=== PATIENT | male | born 1955 | race Caucasian/White ===

== ENCOUNTER → 2022-09-12 | Outpatient (REF) | payer MEDICARE, MEDICAID ==
[~2022-09-12] MED LIST: ATOR1TAB19 PO; JANU100T PO; METF10004 PO; OMEP-173 PO; TAMS1CAP17 PO; VICT18IN2
[2022-09-12 13:28] LABS: APPEARANCE, URINE HAZY (CLEAR); BACTERIA, URINE AUTO 1+ (NEGATIVE); BILIRUBIN, URINE AUTO NEGATIVE (NEGATIVE); BLOOD, URINE BLOOD 2+ (NEGATIVE); COLOR, URINE YELLOW (YELLOW); GLUCOSE, URINE (UA) AUTO NEGATIVE (NEGATIVE); KETONE, URINE AUTO NEGATIVE (NEGATIVE); LEUKOCYTE ESTERASE, URINE AUTO 3+ (NEGATIVE); MUCUS, URINE SMALL (NEGATIVE); NITRITE, URINE AUTO NEGATIVE (NEGATIVE); PROTEIN, URINE AUTO 1+ mg/dL (NEGATIVE); RBC, URINE AUTO 30 /HPF (0-3); SPECIFIC GRAVITY URINE AUTO 1.029 (1.002-1.035); SQUAMOUS EPITHELIAL CELL UR AU 0 /HPF (0-6); UROBILINOGEN, URINE AUTO 0.2 mg/dL (0.0-2.0); WBC, URINE AUTO 109 /HPF (0-3)
== END ==
LOC: M SMT 13:06
PROVIDERS: ATTEND Urology
DX: R33.9 Retention of urine, unspecified (principal)

== ENCOUNTER 2022-09-28 10:12 | Day surgery (SDC) | payer MEDICARE, MEDICAID ==
[~2022-09-28] VITALS: Ht 177.8 cm; Wt 89.8 kg
[~2022-09-28 10:12] MED LIST changes: +LIDOCAINE 1% SDV 30ML VIAL As Ordered ONE; +ceFAZolin SOD 2 GM in IV 1 EA IV ONE
[2022-09-28] MEDS ORDERED: INSULIN LISPRO (NovoLOG) PER UNIT SC PRN (10:55)
[2022-09-28] MEDS ORDERED: LR 1,000 ML IV SCH ×2 (10:55→13:20)
[2022-09-28] MEDS ORDERED: METO1TAB33 PO (11:10)
[2022-09-28] MEDS ORDERED: LISI5TAB11 PO (11:10)
[2022-09-28] MEDS ORDERED: METOPROLOL SUCC (TopROL XL) 100MG *XL* TAB PO ONE (11:55)
[2022-09-28] MEDS ORDERED: ceFAZolin SOD 2 GM in IV 1 EA IV ONE (12:00)
[2022-09-28 12:12] VITALS: BP 178/88
[2022-09-28] MEDS ORDERED: METOPROLOL SUCC *XL* 25MG TAB (TopROL *XL*) PO ONE (12:15)
[2022-09-28] MEDS ORDERED: ONDANSETRON 4MG 2ML VIAL As Ordered ONE (12:44)
[2022-09-28] MEDS ORDERED: fentaNYL 250 MCG/5 ML INJECTION As Ordered ONE (12:44)
[2022-09-28] MEDS ORDERED: MIDAZOLAM INJ 2MG/2ML VIAL As Ordered ONE (12:44)
[2022-09-28] MEDS ORDERED: LIDOCAINE 2% 100MG/5ML SDV (FOR ANES.) As Ordered ONE (12:44)
[2022-09-28] MEDS ORDERED: propofoL 200 MG/20 ML VIAL As Ordered ONE (12:44)
[2022-09-28] MEDS ORDERED: ACETAMINOPHEN 1000MG 100ML IV BAG As Ordered ONE (12:48)
[2022-09-28] MEDS ORDERED: HYDR-3713 PO (13:18)
[2022-09-28] MEDS ORDERED: LEVO1TAB39 PO (13:18)
[2022-09-28] MEDS ORDERED: ONDANSETRON 4MG 2ML VIAL IV PRN (13:20)
[2022-09-28] MEDS ORDERED: oxyCODONE 5MG TAB PO PRN (13:20)
[2022-09-28] MEDS ORDERED: HYDROMORPHONE HCL 0.5 MG/ 0.5 ML SYRINGE IV PRN (13:20)
[2022-09-28] MEDS ORDERED: fentaNYL 100 MCG/2 ML INJECTION IV PRN (13:20)
[2022-09-28 14:35] VITALS: BP 146/70; TEMP 97.4; O2SAT 98
== END 2022-09-28 14:40 | disposition home or self-care (01) ==
LOC: M SDC 10:12
PROVIDERS: ATTEND Urology
DX: R33.9 Retention of urine, unspecified (principal); E11.9 Type 2 diabetes mellitus without complications; K21.9 Gastro-esophageal reflux disease without esophagitis; Z86.73 Personal history of transient ischemic attack (TIA), and cerebral infarction without residual deficits; Z79.899 Other long term (current) drug therapy; Z79.84 Long term (current) use of oral hypoglycemic drugs
CPT/HCPCS: 51040; J0131; J0690; J1100; J2250; J2405; J3010

== ENCOUNTER → 2023-11-22 | Outpatient (CLI) | payer MEDICAID, MEDICARE ==
[~2023-11-22] MED LIST changes: +HYDR-3713 PO; +LEVO1TAB39 PO; +LIDOCAINE 1% MDV 20ML VIAL As Ordered ONE; -LIDOCAINE 1% SDV 30ML VIAL As Ordered ONE; +LISI5TAB11 PO; +METO1TAB33 PO; -ceFAZolin SOD 2 GM in IV 1 EA IV ONE
[2023-11-22 10:02] VITALS: BP 170/80; TEMP 98.8; O2SAT 99
== END ==
LOC: M IRPRO 09:53
PROVIDERS: ATTEND Otolaryngology
DX: D11.0 Benign neoplasm of parotid gland (principal)

== ENCOUNTER → 2024-01-02 | Outpatient (CLI) | payer MEDICARE, MEDICAID ==
[~2024-01-02] MED LIST changes: -LIDOCAINE 1% MDV 20ML VIAL As Ordered ONE
== END ==
LOC: M PLARAD 08:23
PROVIDERS: ATTEND Otolaryngology
DX: C07 Malignant neoplasm of parotid gland (principal)
CPT/HCPCS: 78815; A9552

== ENCOUNTER → 2024-02-19 | Outpatient (CLI) | payer MEDICAID, MEDICARE ==
[~2024-02-19] MED LIST changes: +AMLO1TAB25 PO; +FLOM0.4C39 PO; +VITA200012 PO
== END ==
LOC: M ONCR 08:58
PROVIDERS: ATTEND General Practice
DX: C07 Malignant neoplasm of parotid gland (principal); Z87.891 Personal history of nicotine dependence; Z98.890 Other specified postprocedural states; Z86.73 Personal history of transient ischemic attack (TIA), and cerebral infarction without residual deficits; Z79.84 Long term (current) use of oral hypoglycemic drugs; Z79.899 Other long term (current) drug therapy; Z79.85 Long-term (current) use of injectable non-insulin antidiabetic drugs; Z90.49 Acquired absence of other specified parts of digestive tract

== ENCOUNTER → 2024-03-15 | Outpatient (RCR) | payer MEDICARE, MEDICAID | LOC: M ONCR 02-29 07:41 | PROVIDERS: ATTEND General Practice | DX: Z51.0 Encounter for antineoplastic radiation therapy (principal); C07 Malignant neoplasm of parotid gland ==

== ENCOUNTER → 2024-03-19 | Outpatient (CLI) | payer MEDICAID, MEDICARE ==
[~2024-03-19] MED LIST changes: +LABETALOL 100MG/20ML VIAL As Ordered ONE; +LIDOCAINE 1% MDV 20ML VIAL As Ordered ONE; +MIDAZOLAM INJ 2MG/2ML VIAL As Ordered ONE; +NS (Normal Saline) 0.9% 1,000 ML IV SCH; +ceFAZolin 2 GM/D5W 50 ML IV BAG As Ordered ONE; +fentaNYL 100 MCG/2 ML INJECTION As Ordered ONE
[2024-03-19 09:55] VITALS: TEMP 98.4
[2024-03-19] MEDS: ceFAZolin SOD 2 GM in IV 1 EA IV ONE (10:17)
[2024-03-19 12:00] VITALS: BP 138/77; O2SAT 98
== END ==
LOC: M IRPRO 09:42
PROVIDERS: ATTEND Internal Medicine Medical Oncology
DX: C07 Malignant neoplasm of parotid gland (principal)
CPT/HCPCS: 36561; 99152; 99153; C1894; J0690; J1642; J1920; J2250; J3010

== ENCOUNTER → 2024-04-12 | Outpatient (RCR) | payer MEDICARE, MEDICAID ==
[~2024-04-12] MED LIST changes: -LABETALOL 100MG/20ML VIAL As Ordered ONE; +LIDO15SO8 PO; -LIDOCAINE 1% MDV 20ML VIAL As Ordered ONE; -MIDAZOLAM INJ 2MG/2ML VIAL As Ordered ONE; -NS (Normal Saline) 0.9% 1,000 ML IV SCH; +TRIA1CR80 TOP; -ceFAZolin 2 GM/D5W 50 ML IV BAG As Ordered ONE; -fentaNYL 100 MCG/2 ML INJECTION As Ordered ONE
== END ==
LOC: M ONCR 03-18 08:54
PROVIDERS: ATTEND General Practice
DX: Z51.0 Encounter for antineoplastic radiation therapy (principal); C07 Malignant neoplasm of parotid gland

== ENCOUNTER 2024-04-26 09:45 | Outpatient (RCR) | payer MEDICAID, MEDICARE | END 2024-05-13 | LOC: M ONCR 09:45 | PROVIDERS: ATTEND General Practice | DX: Z51.0 Encounter for antineoplastic radiation therapy (principal); C07 Malignant neoplasm of parotid gland ==

== ENCOUNTER → 2024-05-09 | Outpatient (CLI) | payer MEDICARE, MEDICAID | LOC: M ONCR 12:59 | PROVIDERS: ATTEND General Practice | DX: C07 Malignant neoplasm of parotid gland (principal); L98.8 Other specified disorders of the skin and subcutaneous tissue; Z92.3 Personal history of irradiation ==

== ENCOUNTER → 2024-08-14 | Outpatient (CLI) | payer MEDICARE, MEDICAID ==
[~2024-08-14] MED LIST changes: +DEBR6.5S4 OTIC; -FLOM0.4C39 PO; +TAMS-18 PO
== END ==
LOC: M ONCR 14:21
PROVIDERS: ATTEND General Practice
DX: Z08 Encounter for follow-up examination after completed treatment for malignant neoplasm (principal); Z85.858 Personal history of malignant neoplasm of other endocrine glands; R91.8 Other nonspecific abnormal finding of lung field; H61.21 Impacted cerumen, right ear; Z71.2 Person consulting for explanation of examination or test findings; Z90.09 Acquired absence of other part of head and neck; Z92.21 Personal history of antineoplastic chemotherapy; Z92.3 Personal history of irradiation; Z79.84 Long term (current) use of oral hypoglycemic drugs; Z79.899 Other long term (current) drug therapy; Z87.891 Personal history of nicotine dependence

== ENCOUNTER 2024-08-18 10:34 | Emergency (ER) | payer MEDICARE, MEDICAID ==
[~2024-08-18] VITALS: Ht 177.8 cm; Wt 85.9 kg
[~2024-08-18 10:34] MED LIST changes: -DEBR6.5S4 OTIC
[2024-08-18 12:44] VITALS: BP 121/67; TEMP 98.3; O2SAT 100
[2024-08-18] MEDS ORDERED: DEBR6.5S4 OTIC (13:09)
== END 2024-08-18 13:17 | disposition home or self-care (01) ==
LOC: M ED 10:34
DX: H61.23 Impacted cerumen, bilateral (principal); E11.9 Type 2 diabetes mellitus without complications; I10 Essential (primary) hypertension; K21.9 Gastro-esophageal reflux disease without esophagitis; E78.00 Pure hypercholesterolemia, unspecified; Z86.73 Personal history of transient ischemic attack (TIA), and cerebral infarction without residual deficits; Z79.899 Other long term (current) drug therapy

== ENCOUNTER → 2024-11-04 | Outpatient (CLI) | payer MEDICARE, MEDICAID ==
[~2024-11-04] MED LIST changes: +DEBR6.5S4 OTIC; +ISOVUE-370 76% 100 ML VIAL As Ordered ONE; +MAG100TA PO
== END ==
LOC: M RAD 12:09
PROVIDERS: ATTEND Radiology Radiation Oncology
DX: C07 Malignant neoplasm of parotid gland (principal)
CPT/HCPCS: 70491; Q9967

== ENCOUNTER → 2024-11-14 | Outpatient (CLI) | payer MEDICARE, MEDICAID ==
[~2024-11-14] MED LIST changes: +GUAI237S12 PO; -ISOVUE-370 76% 100 ML VIAL As Ordered ONE
== END ==
LOC: M ONCR 13:49
PROVIDERS: ATTEND General Practice
DX: C07 Malignant neoplasm of parotid gland (principal); R91.1 Solitary pulmonary nodule; Z87.891 Personal history of nicotine dependence; Z90.89 Acquired absence of other organs; Z92.21 Personal history of antineoplastic chemotherapy; Z92.3 Personal history of irradiation; Z79.84 Long term (current) use of oral hypoglycemic drugs; Z79.899 Other long term (current) drug therapy